=== PATIENT | female | born 1975 | race Asian ===

== ENCOUNTER 2017-04-10 10:50 | Emergency (ER) | payer OTHER ==
[~2017-04-10] VITALS: Ht 157.5 cm; Wt 68.2 kg
[2017-04-10] MEDS ORDERED: MELA5TAB20 PO (11:15)
[2017-04-10] MEDS ORDERED: VITA500T88 PO (11:15)
[2017-04-10] MEDS ORDERED: MULT1TAB18 PO (11:15)
[2017-04-10 11:31] LABS: BASO # 0.1 K/mm3 (0.0-0.2); BASO % 1.1 % (0.0-1.0); EOS # 0.2 K/mm3 (0.0-0.50); EOS % 2.5 % (0.0-3.0); LARGE UNSTAINED CELL # 0.1 K/mm3 (0.0-0.4); LARGE UNSTAINED CELL % 1.8 % (0.0-4.0); LYMPH # 2.2 K/mm3 (1.5-4.5); LYMPH % 30.7 % (24.0-44.0); MEAN CORPUSCULAR VOLUME 88.6 fl (80.0-96.0); MONO # 0.3 K/mm3 (0.0-0.8); MONO % 4.3 % (0.0-5.0); NEUTROPHILS % 59.7 % (36.0-66.0); PLATELET COUNT, AUTOMATED 269 k/mm3 (150-450); RED CELL DISTRIBUTION WIDTH 12.1 % (11.5-14.5); WHITE BLOOD COUNT 6.6 K/mm3 (4.0-10.0)
[2017-04-10 11:55] LABS: ANION GAP 8 MEQ/L (8-16); BLOOD UREA NITROGEN 7 MG/DL (7-18); CALCIUM LEVEL 8.4 MG/DL (8.5-10.1); CARBON DIOXIDE LEVEL 22 MEQ/L (21-32); CHLORIDE LEVEL 108 MEQ/L (98-107); CREATININE FOR GFR 0.74 MG/DL (0.55-1.02); GLOMERULAR FILTRATION RATE > 60.0 (>58); GLUCOSE, FASTING 115 MG/DL (70-105); POTASSIUM SERUM 3.8 MEQ/L (3.5-5.1); SODIUM LEVEL 138 MEQ/L (136-145)
[2017-04-10] MEDS ORDERED: ASPIRIN 81 MG CHEW TABLET PO ONE (13:15)
[2017-04-10] MEDS ORDERED: ISOVUE-370 76% 100ML VIAL (Q9967) As Ordered ONE (13:32)
[2017-04-10 13:58] LABS: ALBUMIN 3.8 GM/DL (3.2-5.2); ALBUMIN/GLOBULIN RATIO 1.09 (1.00-1.93); ALKALINE PHOSPHATASE 65 U/L (45-117); ALT/SGPT 27 U/L (12-78); AST/SGOT 22 U/L (15-37); BILIRUBIN,DIRECT < 0.1 MG/DL (0.0-0.2); BILIRUBIN,TOTAL 0.4 MG/DL (0.2-1.0); TOTAL PROTEIN 7.3 GM/DL (6.4-8.2)
--- NOTE | 2017-04-10 15:07 | REP ---
Clinical: Acute right-sided chest pain. Technique: Axial contrast enhanced images from the thoracic inlet to the upper abdomen using 100 ml Isovue 370 intravenous contrast material with coronal and sagittal re-formations. Findings: Satisfactory enhancement of the pulmonary vasculature is achieved and no filling defects are identified to suggest pulmonary embolus. Thoracic aorta is normal caliber without aneurysm or dissection. Heart and pericardium are normal. Bilateral lung gallo are well aerated and clear without acute pulmonary parenchymal consolidation or atelectasis. No nodule or mass lesion. No pleural effusion/reaction. No pneumothorax. No adenopathy. Impression: No evidence for pulmonary embolus. No acute pleuroparenchymal or mediastinal process. Signed by Aftab Saldivar MD 04/10/2017 02:59 P
--- NOTE | 2017-04-10 18:04 | ECGEPIP ---
Stationary ECG Study [facility] - ED Test Date: 2017-04-10 Pat Name: BRITTNY CARDOZA Department: Room: - Gender: F Project Management: molly : 1975 Requested By: ERVIN Blevins Order Number: [id number] Reading MD: Bonifacio Ferrell Measurements Intervals [place] Rate: 103 P: 14 MO: 151 QRS: 39 QRSD: 95 T: 5 QT: 339 QTc: 444 Interpretive Statements SINUS TACHYCARDIA NO PRIORS Electronically Signed On 04-10-2017 18:03:51 EDT by Bonifacio Ferrell
[2017-04-10 18:09] VITALS: BP 137/94
--- NOTE | 2017-04-10 18:09 | ECGEPIP ---
Stationary ECG Study [facility] - ED Test Date: 2017-04-10 Pat Name: BRITTNY CARDOZA Department: Room: - Gender: F [employer] Manager: molly : 1975 Requested By: DESIRE Doss Order Number: [id number] Reading MD: Bonifacio Ferrell Measurements Intervals [place] Rate: 70 P: 21 SC: 157 QRS: 52 QRSD: 98 T: 22 QT: 383 QTc: 414 Interpretive Statements SINUS RHYTHM Electronically Signed On 04-10-2017 18:09:21 EDT by Bonifacio Ferrell
[2017-05-11] MEDS ORDERED: OXYC1TAB23 PO (07:43)
[2017-05-11] MEDS ORDERED: BIOT2500 PO (07:43)
== END 2017-04-10 18:22 | disposition home or self-care (01) ==
LOC: M ED 10:50
DX: R07.9 Chest pain, unspecified (principal); R00.0 Tachycardia, unspecified; Z79.899 Other long term (current) drug therapy
CPT/HCPCS: 71275; 80048; 80076; 82550; 82553; 83690; 85025; 93005; 93041; 94760; 99285; Q9967

== ENCOUNTER 2017-05-13 11:20 | Day surgery (SDC) | payer OTHER ==
[~2017-05-13] VITALS: Ht 157.5 cm; Wt 70.3 kg
[~2017-05-13 11:20] MED LIST: BIOT2500 PO; MELA5TAB20 PO; MULT1TAB18 PO; OXYC1TAB23 PO; VITA500T88 PO
[2017-05-13] MEDS ORDERED: LR 1,000 ML IV ONE (11:30)
[2017-05-13] MEDS ORDERED: AMPICILLIN SOD/SULBACTAM SOD 3 GM in D5W MINI-BAG PLUS 100 ML IV ONE (11:45)
[2017-05-13 12:20] LABS: CONTROL LINE UCG INT CTR LINE PRESENT
[2017-05-13] MEDS ORDERED: LIDOCAINE 2% INJ 100 MG/5 ML SDV (FOR ANES.) As Ordered ONE (12:30)
[2017-05-13] MEDS ORDERED: PROPOFOL 200 MG/20 ML VIAL As Ordered ONE (12:30)
[2017-05-13] MEDS ORDERED: ROCURONIUM BROMIDE 50 MG/5 ML VIAL/SYRINGE As Ordered ONE (12:30)
[2017-05-13] MEDS ORDERED: dexameTHASONE 4 MG/ML 1ML VIAL (J1100) As Ordered ONE (12:31)
[2017-05-13] MEDS ORDERED: MIDAZOLAM INJ 2 MG/2 ML VIAL (J2250) As Ordered ONE (12:32)
[2017-05-13] MEDS ORDERED: fentaNYL 250 MCG/5 ML INJECTION (J3010) As Ordered ONE (12:33)
[2017-05-13] MEDS ORDERED: LIDOCAINE 1% SDV INJ 30 ML VIAL As Ordered ONE (13:16)
[2017-05-13] MEDS ORDERED: BUPIVACAINE HCL 0.25% 30 ML VIAL As Ordered ONE (13:16)
[2017-05-13] MEDS ORDERED: OXYC1TAB23 PO ×2 (13:25→13:30)
[2017-05-13] MEDS ORDERED: ONDANSETRON 4MG/2ML VIAL (J2405) As Ordered ONE (13:53)
[2017-05-13] MEDS ORDERED: KETOROLAC 60 MG/2 ML VIAL (J1885) As Ordered ONE (14:15)
[2017-05-13] MEDS ORDERED: NEOSTIGMINE 1MG/ML 5 ML SYRINGE (J2710) As Ordered ONE (14:17)
[2017-05-13] MEDS ORDERED: GLYCOPYRROLATE INJ 0.2 MG/ML 2 ML VIAL As Ordered ONE (14:17)
[2017-05-13] MEDS ORDERED: HYDROmorphone HCL 2 MG/ML 1ML VIAL (J1170) As Ordered ONE (14:24)
--- NOTE | 2017-05-13 14:36 | ROOPDOC ---
[facility] Report Of Operation Report of Operation DATE OF PROCEDURE: 05/13/17 PREPROCEDURE DIAGNOSES: Acute Cholecystitis. POSTPROCEDURE DIAGNOSES: Cholesterolosis (gallbladder polyp). PROCEDURE: Laparoscopic Cholecystectomy. SURGEON: Albert Mcintosh MD OPERATING ROOM SURGICAL TECHNOLOGIST: Maci Doyle NP ANESTHESIA: general anesthesia. ESTIMATED BLOOD LOSS: Approximately 10 mL. COMPLICATIONS: none. REMARKS: moderately dilated, but thin walled gallbladder. No acute inflammation PROCEDURE NOTE: 41 F with one month history of right upper quadrant pain and discomfort, with nausea. US shows gallbladder polyps. DESCRIPTION OF PROCEDURE: She is brought to the OR for laparoscopic cholecystectomy. She has given a dose of Unasyn 3 g IV for prophylaxis. She placed supine on the table. General endotracheal anesthesia started. Her abdomen prepped and draped in usual sterile fashion. She had compression stockings for DVT prophylaxis. After surgical timeout we began our surgery. Entry into the abdomen done through an incision at the top of the umbilicus. Veress needle inserted and intra-abdominal insufflation done to a pressure of 15 mmHg. Using the same incision a 5 mm Visiport was placed under direct vision laparoscope. She was then placed on the reverse Trendelenburg position, her right side tilted up about 30 to further expose the gallbladder. 3 working ports were placed in their usual position including 11 mm port at the epigastric area, and two 5 mm ports along the right subcostal line. The gallbladder was noted to be moderately distended, thin walled. No acute inflammation noted. Liver appears smooth in appearance. Fundus of gallbladder was grasped and the gallbladder elevated superiorly exposing the infundibulum neck to gallbladder. The hepato-cystic triangle was dissected both with [place] instrument and Bovie cautery. The cystic duct was identified as well as the cystic artery. the gallbladder appears slightly rotated that the artery is lateral to the cystic duct. There were both circumferentially dissected. The posterior wall of the neck of the gallbladder was likewise dissected free off the liver bed. Dissection of the gallbladder neck done until we met the critical view of safety whereby only the previously identified cystic duct and cystic artery were coursing through the neck to gallbladder. The cystic artery was clipped 4 times and divided. After again checking for proper anatomy that the duct is coming off the gallbladder neck. Cystic duct was clipped 4 times and divided. The rest of the gallbladder was then dissected off the liver bed with Bovie cautery. The gallbladder was delivered into the bag and retrieved from the epigastric port site. On re-insufflation, we examined our surgical site. Liver bed shows no bleeding. The clips at the cystic duct and artery were noted to be well placed. The abdomen was then deflated, all ports removed. The fascial defect at the epigastric port site was closed with 0 Vicryl. All skin incisions closed with 4-0 Monocryl in subcuticular fashion Steri-Strips and gauze dressings covered by Tegaderm was used for wound coverage. Patient was then promptly awake and extubated and brought to the recovery room stable sponges and instruments verified to be correct . ALBERT MCINTOSH MD May 13, 2017 14:36
[2017-05-13] MEDS ORDERED: ONDANSETRON 4 MG TAB (S0181) PO PRN (15:00)
[2017-05-13] MEDS ORDERED: ONDANSETRON 4MG/2ML VIAL (J2405) IV PRN (15:00)
[2017-05-13] MEDS ORDERED: PERCOCET 5MG/325MG TAB PO PRN ×2 (15:00)
[2017-05-13] MEDS ORDERED: LR 1,000 ML IV SCH (15:00)
[2017-05-13] MEDS: fentaNYL 100 MCG/2 ML INJECTION (J3010) IV PRN ×4 (15:05→15:20)
[2017-05-13] MEDS: PERCOCET 5MG/325MG TAB PO PRN ×2 (15:05→15:35)
[2017-05-13 18:50] VITALS: BP 141/78
[2017-05-13] MEDS ORDERED: KETOROLAC 30 MG/ML VIAL (J1885) IV PRN (21:00)
== END 2017-05-13 19:07 ==
LOC: M SDC 11:20
PROVIDERS: ATTEND Surgery
DX: K82.4 Cholesterolosis of gallbladder (principal); R06.83 Snoring; Z79.899 Other long term (current) drug therapy
CPT/HCPCS: 47562; 84703; 88304; J1100; J1170; J1885; J2250; J2405; J2710; J3010

== ENCOUNTER 2018-07-14 15:42 | Emergency (ER) | payer OTHER ==
[2018-07-14 16:46] LABS: BASO % 0.4 % (0.0-1.0); EOS # 0.1 10^3/uL (0.0-0.50); HEMATOCRIT 40.5 % (36.0-47.0); HEMOGLOBIN 14.1 g/dl (12.0-15.5); IMMATURE GRANULOCYTE % 0.4 % (0-3.0); LYMPH # 2.7 10^3/uL (1.5-4.5); MEAN CORPUSCULAR HGB CONC 34.8 g/dl (32.0-36.5); MEAN CORPUSCULAR VOLUME 86.2 fl (80.0-96.0); MONO # 0.5 10^3/uL (0.0-0.8); MONO % 6.8 % (0.0-5.0); NEUTROPHILS # 4.5 10^3/uL (1.8-7.7); NEUTROPHILS % 57.4 % (36.0-66.0); PLATELET COUNT, AUTOMATED 303 10^3/uL (150-450); RED CELL DISTRIBUTION WIDTH 12.2 % (11.5-14.5); WHITE BLOOD COUNT 7.8 10^3/uL (4.0-10.0)
[2018-07-14 17:09] LABS: ALBUMIN 4.3 GM/DL (3.2-5.2); ALBUMIN/GLOBULIN RATIO 1.23 (1.00-1.93); ALKALINE PHOSPHATASE 65 U/L (45-117); ALT/SGPT 24 U/L (12-78); AMYLASE 75 U/L (25-115); ANION GAP 9 MEQ/L (8-16); AST/SGOT 20 U/L (7-37); BILIRUBIN,DIRECT 0.1 MG/DL (0.0-0.2); BILIRUBIN,TOTAL 0.4 MG/DL (0.2-1.0); BLOOD UREA NITROGEN 13 MG/DL (7-18); CALCIUM LEVEL 9.2 MG/DL (8.5-10.1); CARBON DIOXIDE LEVEL 26 MEQ/L (21-32); CHLORIDE LEVEL 105 MEQ/L (98-107); CREATININE FOR GFR 0.79 MG/DL (0.55-1.30); GLOMERULAR FILTRATION RATE > 60.0 (>58); GLUCOSE, FASTING 91 MG/DL (70-100); LIPASE 128 U/L (73-393); POTASSIUM SERUM 4.1 MEQ/L (3.5-5.1); SODIUM LEVEL 140 MEQ/L (136-145); TOTAL PROTEIN 7.8 GM/DL (6.4-8.2)
[2018-07-14] MEDS: KETOROLAC 30 MG/ML VIAL (J1885) IV (17:16)
[2018-07-14] MEDS: NS 1,000 ML IV (17:16)
[2018-07-14] MEDS: ONDANSETRON 4MG/2ML VIAL (J2405) IV (17:16)
[2018-07-14 17:46] LABS: KETONE, URINE AUTO RFX NEGATIVE (NEGATIVE); LEUKOCYTE ESTERASE UR AUTO RFX NEGATIVE (NEGATIVE); MUCUS, URINE RFX SMALL (NEGATIVE); NITRITE, URINE AUTO RFX NEGATIVE (NEGATIVE); RBC, URINE AUTO RFX 5 /HPF (0-3); SPECIFIC GRAVITY UR AUTO RFX 1.018 (1.002-1.035); SQUAM EPITHELIAL CELL UR AURFX 3 /HPF (0-6); WBC, URINE AUTO RFX 1 /HPF (0-3)
[2018-07-14] MEDS ORDERED: ISOVUE-370 76% 100ML VIAL (Q9967) As Ordered (18:31)
[2018-07-14] MEDS: MORPHINE 4 MG/ML 1ML VIAL/SYRINGE (J2270) IV (18:55)
[2018-07-14] MEDS: GI COCKTAIL 50ML BTL(HYOSCYAMINE/MAALOX/LIDOCAINE VISCOUS)(1:3:1) PO (19:54)
== END 2018-07-14 20:16 | disposition home or self-care (01) ==
LOC: M ED 15:42
DX: K29.00 Acute gastritis without bleeding (principal); K21.0 Gastro-esophageal reflux disease with esophagitis; R10.10 Upper abdominal pain, unspecified; J45.909 Unspecified asthma, uncomplicated; Z86.711 Personal history of pulmonary embolism; Z79.899 Other long term (current) drug therapy
CPT/HCPCS: J2270